=== PATIENT | male | born 1960 | race African-American/Black ===

== ENCOUNTER 2020-04-11 20:08 | Emergency (ER) | payer OTHER ==
[2020-04-11 21:40] LABS: #Eosinphils 0.1 thou/uL (0.0-0.7); #Lymphocytes 1.9 thou/uL (1.20-3.40); #Monocytes 0.9 thou/uL (0.11-0.59); #Neutrophils 3.6 thou/uL (1.40-6.50); %Basophils 0.4 % (0.0-1.0); %Eosinophils 1.6 % (0.0-10.0); %Monocytes 13.3 % (0.0-10.0); %Neutrophils 55.8 % (42.0-75.0); Hemoglobin 15.2 g/dL (14.0-18.0); Mean Platelet Volume 7.1 fL (7.4-10.4); Platelet Count 155 thou/uL (130-400); RBC Distribution Width 13.1 % (11.5-14.5); Red Blood Cell (RBC) Count 4.76 mill/uL (4.70-6.10); White Blood Cell (WBC) Count 6.5 thou/uL (4.8-10.8)
[2020-04-11 22:00] LABS: ALT (SGPT) 12 U/L (8-55); AST (SGOT) 14 U/L (5-34); Albumin 4.2 g/dL (3.5-5.0); Alkaline Phosphatase 179 U/L (40-110); Anion Gap 21 mmol/L (10-20); BUN (Urea Nitrogen) 31 mg/dL (8.4-25.7); Bilirubin, Total 0.5 mg/dL (0.2-1.2); CRP (Inflammatory) 3.87 mg/dL (= or < 0.5); Calc. Creatinine Clearance 0 mL/min (70-130); Calcium 9.4 mg/dL (7.8-10.44); Carbon Dioxide 29 mmol/L (22-29); Chloride 95 mmol/L (98-107); Globulin 4.8 g/dL (2.4-3.5); Glucose 123 mg/dL (70-105); Sodium 140 mmol/L (136-145)
--- NOTE | 2020-04-11 22:00 | RAD ---
3 views left hand: 04/11/2020 COMPARISON: None HISTORY: Pain, finger numbness FINDINGS: There is atherosclerotic calcification overlying the palm and the second through fifth fing ers. There is vascular calcification adjacent to the first proximal phalanx. No acute fracture or evidence of dislocation. No radiopaque foreign body or subcutaneous gas. IMPRESSION: Atherosclerotic calcification. No acute osseous abnormality.
[2020-04-11] MEDS ORDERED: Morphine 4 MG/ML VIAL ONE (22:33)
[2020-04-11] MEDS ORDERED: Cefepime 1 GM VIAL ONE (23:10)
[2020-04-11] MEDS ORDERED: Vancomycin 1 GM/200 ML BAG ONE (23:59)
[2020-04-12] MEDS ORDERED: Morphine 4 MG/ML VIAL ONE (00:35)
== END 2020-04-12 03:53 | disposition short-term general hospital (02) ==
LOC: ERS 20:08 → EEVIPCON 20:08 → ERS 04-12 03:53
DX: I73.9 Peripheral vascular disease, unspecified (principal); I12.0 Hypertensive chronic kidney disease with stage 5 chronic kidney disease or end stage renal disease; N18.6 End stage renal disease; Z79.899 Other long term (current) drug therapy; Z79.82 Long term (current) use of aspirin
CPT/HCPCS: 36415; 80053; 85025; 85652; 86140; 96365; 96367; 96375; 96376; J0692; J2270; J3370